=== PATIENT | female | born 1995 | race Caucasian/White ===

== ENCOUNTER 2017-02-19 08:22 | Emergency (ER) | payer MEDICAID, OTHER ==
[~2017-02-19] VITALS: Ht 160 cm; Wt 68.0 kg
[~2017-02-19 08:22] MED LIST: ZOFR4TAB3 SL
[2017-02-19 08:29] VITALS: PULSE 55; RESP 16; TEMP 98.3; O2SAT 99
[2017-02-19 08:40] VITALS: BP 102/58
[2017-02-19] MEDS ORDERED: DEXAMETHASONE SOD PHOS 4 MG/ML VIAL IM ONE (09:15)
[2017-02-19] MEDS ORDERED: SODIUM CHLORIDE 0.9% FLUSH 10 ML FLUSH IVF PRN (09:15)
[2017-02-19] MEDS ORDERED: RESP: ALBUTEROL 2.5 MG/IPRATROPIUM 0.5 MG NEB (SCH) INH ONE (09:15)
[2017-02-19] MEDS ORDERED: guaiFENesin/CODEINE SYRUP 200 MG/20 MG/10 ML CUP PO ONE (09:15)
[2017-02-19] MEDS ORDERED: KETOROLAC TROMETHAMINE 60 MG/2 ML (IM) VIAL IM ONE (09:15)
[2017-02-19] MEDS ORDERED: ALBUTEROL SULFATE 90 MCG/ACT HFA 8 GM INHALER INH ONE (09:15)
--- NOTE | 2017-02-19 09:36 | RADHPO ---
EXAM DATE/TIME: 02/19/2017 09:20 [facility] COMPARISON: CHEST PA & LAT, December 19, 2015, 9:19. INDICATIONS : Short of breath. Left lower chest pain. MEDICAL HISTORY : None. SURGICAL HISTORY : Tonsillectomy. ENCOUNTER: Initial ACUITY: 1 day PAIN SCORE: 8/10 LOCATION: chest FINDINGS: A single view of the chest demonstrates the lungs to be symmetrically aerated without evidence of mas s, infiltrate or effusion. The cardiomediastinal contours are unremarkable. Incidental note of a ce rvical rib on the left side.. CONCLUSION: The lungs are clear. Michael Martínez MD on February 19, 2017 at 9:34 Board Certified Radiologist. This report was verified electronically.
[2017-02-19] MEDS ORDERED: IBUP400T20 PO (09:44)
[2017-02-19] MEDS ORDERED: AZIT250T3 PO (09:44)
--- NOTE | 2017-02-19 09:44 | PD ---
HPI Chief Complaint: Lump, Cyst, Hernia Time Seen by Provider: 08:46 Travel History International Travel<30 days: No Contact w/Intl Traveler<30days: No Traveled to known affect area: No History of Present Illness HPI 21-year-old female arrives complaining of chest pain dyspnea total body pain cough for 2 days. The pain is primarily on the left side of the shoulder and chest. She denies fever. She also reports a lump in the region of the left neck which has been painful for at least one year. She has no past medical history. She has history of tonsillectomy. She denies taking any medication. She smokes tobacco. PFSH Past Medical History Medical History: Denies Significant Hx Hx Anticoagulant Therapy: No Diabetes: No ?: Unknown Past Surgical History Tonsillectomy: Yes Social History Alcohol Use: No Tobacco Use: Yes (1ppd) Substance Use: No Allergies-Medications (Allergen,Severity, Reaction): Coded Allergies: Penicillin (Verified Allergy, Severe, 02/19/17) Reported Meds & Prescriptions Reported Meds & Active Scripts Active Azithromycin 250 Mg Tab 250 Mg PO DIRECTED Take 2 tabs (500 mg) on day 1 then 1 tab daily x 4 days. Ibuprofen 400 Mg Tab 400 Mg PO Q8H PRN 5 Days Review of Systems Except as stated in HPI: all other systems reviewed are Neg Cardiovascular: Positive: Chest Pain or Discomfort Respiratory: Positive: Cough, Shortness of Breath Physical Exam Narrative GENERAL: [age]-year-old female pleasant mild distress SKIN: Focused skin assessment warm/dry. HEAD: Atraumatic. Normocephalic. EYES: Pupils equal and round. No scleral icterus. No injection or drainage. ENT: No nasal bleeding or discharge. Mucous membranes pink and moist. NECK: Trachea midline. No JVD. CARDIOVASCULAR: Regular rate and rhythm. No murmur appreciated. RESPIRATORY: No dyspnea. No tachypnea. Trace wheezing. GASTROINTESTINAL: Abdomen soft, non-tender, nondistended. Hepatic and splenic margins not palpable. MUSCULOSKELETAL: No obvious deformities. No clubbing. No cyanosis. No edema. NEUROLOGICAL: Awake and alert. No obvious cranial nerve deficits. Motor grossly within normal limits. Normal speech. PSYCHIATRIC: Appropriate mood and affect; insight and judgment normal. Data Data Last Documented VS Vital Signs Date Time Temp Pulse Resp B/P Pulse Ox O2 Delivery O2 Flow Rate FiO2 02/19/17 08:40 102/58 02/19/17 08:29 98.3 55 16 99 Vital signs reviewed Orders Chest, Single Ap (02/19/17 09:03) Sodium Chloride 0.9% Flush (Ns Flush) (02/19/17 09:15) Albuterol-Ipratropium Neb (Duoneb Neb) (02/19/17 09:15) Dexamethasone Inj (Decadron Inj) (02/19/17 09:15) Albuterol Hfa Inh (Proair Hfa Inh) (02/19/17 09:15) Guaifen-Cod 200-20 Mg/10ml Liq (Robituss (02/19/17 09:15) Ketorolac Inj (Toradol Inj) (02/19/17 09:15) MDM Medical Decision Making Medical Screen Exam Complete: Yes Emergency Medical Condition: Yes Medical Record Reviewed: Yes Differential Diagnosis Bronchitis, pneumonia, viral syndrome Narrative Course Patient has been observed sleeping in the ER thrice. She has received an inhaler and steroids. We'll send her home with the same. She is ready for discharge. On exam there is slight tenderness in the region of the left clavicular fossa. Last 24 hours Impressions Chest X-Ray 02/19/17902 Signed Impressions: Service Date/Time: February 09:20 - CONCLUSION: The lungs are clear. Michael Martínez MD Incidental note of a cervical rib. Diagnosis Primary Impression: Cough Additional Impressions: Neck pain Complaints of total body pain Dyspnea Qualified Code: R06.00 - Dyspnea, unspecified type Referrals: Primary Care Physician 2 days Additional Instructions: You have a choice when it comes to health care, and we are glad that you chose [facility]. Hopefully, we have met your expectations on today's visit. You are welcome to return to [facility] at any time, as we are committed to meeting the health care needs of our community. Med/Other Pt SpecificInfo: Prescription(s) given Scripts Azithromycin 250 Mg [id number] Mg PO DIRECTED #6 TAB Ref 0 Take 2 tabs (500 mg) on day 1 then 1 tab daily x 4 days. Prov:Mohamud Walter MD 02/19/17 Ibuprofen 400 Mg [id number] Mg PO Q8H PRN (PAIN SCALE 6 TO 10) 5 Days Ref 0 Prov:Mohamud Walter MD 02/19/17 Disposition: 01 DISCHARGE HOME Condition: Stable Mohamud Walter MD Feb 19, 2017 09:44
== END 2017-02-19 10:07 | disposition home or self-care (01) ==
LOC: PHED 08:22
DX: R05 Cough (principal); M54.2 Cervicalgia; M79.1 Myalgia; R06.00 Dyspnea, unspecified; R07.89 Other chest pain; M25.512 Pain in left shoulder; F17.200 Nicotine dependence, unspecified, uncomplicated
CPT/HCPCS: 71010; 94664; 96372; 99283; J1100; J1885

== ENCOUNTER 2017-02-22 11:41 | Emergency (ER) | payer MEDICAID, OTHER ==
[~2017-02-22] VITALS: Ht 172.7 cm; Wt 65.0 kg
[~2017-02-22 11:41] MED LIST changes: +AZIT250T3 PO; +IBUP400T20 PO; -ZOFR4TAB3 SL
[2017-02-22 11:44] VITALS: BP 121/72; PULSE 78; RESP 18; TEMP 98.1; O2SAT 100
[2017-02-22] MEDS ORDERED: SODIUM CHLOR 0.9% 1000 ML INJ 1,000 ML IV SCH (12:09)
--- NOTE | 2017-02-22 12:13 | PD ---
HPI Chief Complaint: GI Complaint Time Seen by Provider: 12:00 Travel History International Travel<30 days: No Contact w/Intl Traveler<30days: No Traveled to known affect area: No History of Present Illness HPI 21-year-old female complains of persistent cough, chest wall pain, nausea vomiting. Patient was seen in emergency room 3 days ago with diagnosis of cough and body pain. Patient was given prescription for Zithromax and ibuprofen. Patient has been taking medication as directed. Patient states the cough is persistent and productive. Patient lives right-sided chest wall pain and right upper back pain with coughing. Patient states that she started having intermittent nausea vomiting for the past 2 days. Patient denies any dysuria or frequency. Patient denies any vaginal discharge or bleeding. Patient denies any chance of being . PFSH Past Medical History Hx Anticoagulant Therapy: No Diabetes: No ?: Not LMP: 01/28/17 Past Surgical History Tonsillectomy: Yes Social History Alcohol Use: No Tobacco Use: Yes (1ppd) Substance Use: No Allergies-Medications (Allergen,Severity, Reaction): Coded Allergies: Penicillin (Verified Allergy, Severe, 02/19/17) Reported Meds & Prescriptions Reported Meds & Active Scripts Active Robaxin (Methocarbamol) 750 Mg Tab 750 Mg PO QID [Phenergan W Codein] 10 Ml PO Q6HR Tessalon Perles (Benzonatate) 100 Mg Cap 200 Mg PO TID PRN Azithromycin 250 Mg Tab 250 Mg PO DIRECTED Take 2 tabs (500 mg) on day 1 then 1 tab daily x 4 days. Ibuprofen 400 Mg Tab 400 Mg PO Q8H PRN 5 Days Review of Systems General / Constitutional: No: Fever Eyes: No: Visual changes HENT: No: Headaches Cardiovascular: No: Chest Pain or Discomfort Respiratory: Positive: Cough, No: Shortness of Breath Gastrointestinal: Positive: Nausea, Vomiting, No: Abdominal Pain Genitourinary: No: Dysuria Musculoskeletal: No: Pain Skin: No Rash Neurologic: No: Weakness Psychiatric: No: Depression Endocrine: No: Polydipsia Hematologic/Lymphatic: No: Easy Bruising Physical Exam Narrative GENERAL: Well-nourished, well-developed patient. SKIN: Focused skin assessment warm/dry. HEAD: Normocephalic. EYES: No scleral icterus. No injection or drainage. NECK: Supple, trachea midline. No JVD or lymphadenopathy. CARDIOVASCULAR: Regular rate and rhythm without murmurs, gallops, or rubs. RESPIRATORY: Breath sounds equal bilaterally. No accessory muscle use. GASTROINTESTINAL: Abdomen soft, non-tender, nondistended. MUSCULOSKELETAL: No cyanosis, or edema. BACK: Nontender without obvious deformity. No CVA tenderness. Neurologic exam normal. Data Data Last Documented VS Vital Signs Date Time Temp Pulse Resp B/P Pulse Ox O2 Delivery O2 Flow Rate FiO2 02/22/17 13:55 104 16 124/68 100 Room Air 02/22/17 11:44 98.1 Orders Complete Blood Count With Diff (02/22/17 12:09) Comprehensive Metabolic Panel (02/22/17 12:09) Urinalysis - C+S If Indicated (02/22/17 12:09) Iv Access Insert/Monitor (02/22/17 12:09) Ecg Monitoring (02/22/17 12:09) Oximetry (02/22/17 12:09) Ondansetron Inj (Zofran Inj) (02/22/17 12:15) Sodium Chlor 0.9% 1000 Ml Inj (Ns 1000 M (02/22/17 12:09) Chest, Single Ap (02/22/17 12:09) Ed Urine Pregnancytest Poc (02/22/17 12:09) Ketorolac Inj (Toradol Inj) (02/22/17 12:15) Influenzae A/B Antigen (02/22/17 12:56) Sodium Chlor 0.9% 1000 Ml Inj (Ns 1000 M (02/22/17 13:30) Levofloxacin (Levaquin) (02/22/17 13:30) Labs Laboratory Tests Test 02/22/17 02/22/17 12:15 12:20 White Blood Count 15.9 TH/MM3 Red Blood Count 5.31 MIL/MM3 Hemoglobin 15.7 GM/DL Hematocrit 46.2 % Mean Corpuscular Volume 87.0 FL Mean Corpuscular Hemoglobin 29.5 PG Mean Corpuscular Hemoglobin 33.9 % Concent Red Cell Distribution Width 13.8 % Platelet Count 337 TH/MM3 Mean Platelet Volume 8.6 FL Neutrophils (%) (Auto) 90.9 % Lymphocytes (%) (Auto) 4.1 % Monocytes (%) (Auto) 4.4 % Eosinophils (%) (Auto) 0.4 % Basophils (%) (Auto) 0.2 % Neutrophils # (Auto) 14.4 TH/MM3 Lymphocytes # (Auto) 0.7 TH/MM3 Monocytes # (Auto) 0.7 TH/MM3 Eosinophils # (Auto) 0.1 TH/MM3 Basophils # (Auto) 0.0 TH/MM3 CBC Comment AUTO DIFF Differential Total Cells 100 Counted Neutrophils % (Manual) 79 % Band Neutrophils % 13 % Lymphocytes % 4 % Monocytes % 3 % Basophils % 1 % Neutrophils # (Manual) 14.6 TH/MM3 Differential Comment FINAL DIFF MANUAL Platelet Estimate NORMAL Platelet Morphology Comment NORMAL Red Cell Morphology Comment NORMAL Sodium Level 138 MEQ/L Potassium Level 4.5 MEQ/L Chloride Level 106 MEQ/L Carbon Dioxide Level 23.6 MEQ/L Anion Gap 8 MEQ/L Blood Urea Nitrogen 19 MG/DL Creatinine 1.10 MG/DL Estimat Glomerular Filtration 64 ML/MIN Rate Random Glucose 118 MG/DL Calcium Level 9.5 MG/DL Total Bilirubin 0.7 MG/DL Aspartate Amino Transf 14 U/L (AST/SGOT) Alanine Aminotransferase 19 U/L (ALT/SGPT) Alkaline Phosphatase 98 U/L Total Protein 8.9 GM/DL Albumin 4.7 GM/DL Urine Collection Type CLEAN CATCH Urine Color S[place] Urine Turbidity SLIGHT Urine pH 5.5 Urine Specific [place] 1.032 Urine Protein 30 mg/dL Urine Glucose (UA) NEG mg/dL Urine Ketones 15 mg/dL Urine Occult Blood NEG Urine Nitrite NEG Urine Bilirubin NEG Urine Leukocyte Esterase NEG Urine WBC 0-2 /hpf Urine Squamous Epithelial > 8 /hpf Cells Urine Amorphous Sediment MOD Microscopic Urinalysis Comment CULT NOT INDICATED Urine Collection Time 1220 MDM Medical Decision Making Medical Screen Exam Complete: Yes Emergency Medical Condition: Yes Interpretation(s) 12:54 PM. Last Impressions Chest X-Ray 02/22/17 1209 Signed Impressions: Service Date/Time: Wednesday, February 22, 2017 12:16 - CONCLUSION: Normal examination. Madonna Araya MD 12:55 PM. CBC WBC 15.9. Hemoglobin 15.7 hematocrit 46.2. 90 neutrophil. BUN 19. Creatinine 1.10. UA is negative. BUN 19. Creatinine 1.10. Influenza AB antigen negative. Differential Diagnosis Differential diagnosis including viral syndrome, bronchitis, pneumonia, gastroenteritis, dehydration, electrolyte imbalance. Narrative Course 21-year-old female complains of coughing chest wall pain and nausea vomiting. Patient is on Zithromax day #3. Normal saline solution 1 L IV bolus. Zofran 4 mg IV. Toradol 30 mg IV. CBC and CMP reveal shows hemoconcentration and dehydration. Patient was offered admission for IV hydration and treatment. Patient refuses admission. Patient wants to go home with medication. Repeat normal saline solution 1 L IV bolus. Levaquin 750 mg by mouth given. Diagnosis Primary Impression: Bronchitis Additional Impression: Viral syndrome Patient Instructions: General Instructions Additional Instructions: Continue with Zithromax. Tylenol for fever. Take cough medication as directed. Follow-up with local physician. Return if persistent problem or worse. Med/Other Pt SpecificInfo: Prescription(s) given Scripts Methocarbamol (Robaxin)750 Mg [id number] Mg PO QID #40 TAB Ref 0 Prov:Ran Craft MD 02/22/17 [Phenergan W Codein] No Conflict Check10 Ml PO Q6HR #120 Prov:Ran Craft MD 02/22/17 Benzonatate (Tessalon Perles)100 Mg [id number] Mg PO TID PRN (COUGH) #30 CAP Prov:Ran Craft MD 02/22/17 Disposition: 01 DISCHARGE HOME Condition: Stable Ran Craft MD Feb 22, 2017 12:13
[2017-02-22] MEDS ORDERED: ONDANSETRON HCL 4 MG/2 ML VIAL IVP ONE (12:15)
[2017-02-22] MEDS ORDERED: KETOROLAC TROMETHAMINE 30 MG/ML (IVP) VIAL IV PUSH ONE (12:15)
[2017-02-22 12:26] VITALS: RESP 18; O2SAT 98
[2017-02-22 12:35] LABS: BLOOD, URINE NEG (NEG); GLUCOSE,URINE NEG (NEG); KETONE, URINE 15 mg/dL (NEG); NITRITE,URINE NEG (NEG); PH, URINE 5.5 (5.0-8.5)
[2017-02-22 12:37] LABS: AUTOMATED NEUTROPHIL # 14.4 TH/MM3 (1.8-7.7); BASOPHIL % 0.2 % (0.0-2.0); EOSINOPHIL # 0.1 TH/MM3 (0-0.4); EOSINOPHIL % 0.4 % (0.0-4.0); HEMATOCRIT 46.2 % (35.0-46.0); LYMPH % 4.1 % (9.0-44.0); LYMPHOCYTE # 0.7 TH/MM3 (1.0-4.8); MEAN CORPUSCULAR HEMOGLOBIN 29.5 PG (27.0-34.0); MEAN CORPUSCULAR HGB CONC 33.9 % (32.0-36.0); MONO % 4.4 % (0.0-8.0); NEUT % 90.9 % (16.0-70.0); PLATELET COUNT 337 TH/MM3 (150-450); RED BLOOD COUNT 5.31 MIL/MM3 (4.00-5.30); RED CELL DISTRIBUTION WIDTH 13.8 % (11.6-17.2); WHITE BLOOD COUNT 15.9 TH/MM3 (4.0-11.0)
[2017-02-22 12:38] LABS: HEMO FLAGS AUTO DIFF
--- NOTE | 2017-02-22 12:40 | RADHPO ---
EXAM DATE/TIME: 02/22/2017 12:16 [facility] COMPARISON: CHEST SINGLE AP, February 19, 2017, 9:20. INDICATIONS : Chest pain, cough, short of breath MEDICAL HISTORY : None. SURGICAL HISTORY : None. ENCOUNTER: Initial ACUITY: 4 - 6 days PAIN SCORE: 10/10 LOCATION: Bilateral chest FINDINGS: A single view of the chest demonstrates the lungs to be symmetrically aerated without evidence of mas s, infiltrate or effusion. The cardiomediastinal contours are unremarkable. Osseous structures are intact. CONCLUSION: Normal examination. Madonna Araya MD on February 22, 2017 at 12:38 Board Certified Radiologist. This report was verified electronically.
[2017-02-22 12:42] LABS: METHOD OF COLLECTION CLEAN CATCH; URINE COLOR AMBER (YELLW/STRAW)
[2017-02-22 12:43] LABS: CULTURE IF INDICATED CULT NOT INDICATED; WBC, URINE 0-2 /hpf (0-5)
[2017-02-22 12:44] LABS: COMMENT (UR) CULT NOT INDICATED; COMMENT2 (UR) MHCOUS; SQUAMOUS EPITHELIAL CELL URINE > 8 /hpf (0-5)
[2017-02-22 12:46] LABS: CHLORIDE 106 MEQ/L (98-107); POTASSIUM 4.5 MEQ/L (3.5-5.1); SODIUM (NA) 138 MEQ/L (136-145)
[2017-02-22 12:49] LABS: ANION GAP 8 MEQ/L (5-15); BICARBONATE 23.6 MEQ/L (21.0-32.0)
[2017-02-22 12:50] LABS: BLOOD UREA NITROGEN 19 MG/DL (7-18)
[2017-02-22 12:53] LABS: ALT (GPT) 19 U/L (9-42); AST (GOT) 14 U/L (16-38); GLOMERULAR FILTRATION RATE 64 ML/MIN (>89)
[2017-02-22 12:54] LABS: TOTAL BILIRUBIN ADULT 0.7 MG/DL (0.2-1.0)
[2017-02-22 12:55] LABS: ALKALINE PHOSPHATASE 98 U/L (45-117)
[2017-02-22 12:56] LABS: BANDS 13 % (0-6); BASOPHILS 1 % (0-2); NEUTROPHIL # MANUAL DIFF 14.6 TH/MM3 (1.8-7.7); POLYS (SEG NEUTROPHILS) 79 % (16-70); WBC DIFF SAMPLE 100
[2017-02-22 12:57] LABS: PLATELET ESTIMATE SMEAR NORMAL (NORMAL); PLATELET MORPHOLOGY NORMAL (NORMAL); SCAN/DIFF FINAL DIFF MANUAL
[2017-02-22] MEDS ORDERED: SODIUM CHLOR 0.9% 1000 ML INJ 1,000 ML IV ONE (13:30)
[2017-02-22] MEDS ORDERED: LEVOFLOXACIN 750 MG TAB PO ONE (13:30)
[2017-02-22] MEDS ORDERED: BENZ100 PO (13:35)
[2017-02-22] MEDS ORDERED: ROBA750T PO (13:35)
[2017-02-22] MEDS ORDERED: PHENERGAN W CODEIN PO (13:35)
[2017-02-22 13:55] VITALS: BP 124/68; PULSE 104; RESP 16; O2SAT 100
== END 2017-02-22 14:41 | disposition home or self-care (01) ==
LOC: PHED 11:41
DX: J40 Bronchitis, not specified as acute or chronic (principal); B34.9 Viral infection, unspecified; F17.200 Nicotine dependence, unspecified, uncomplicated
CPT/HCPCS: 71010; 80053; 81001; 84703; 85007; 85027; 87804; 96361; 96374; 96375; 99283; J1885; J2405; J7030

== ENCOUNTER 2017-02-28 13:14 | Emergency (ER) | payer MEDICAID, OTHER ==
[~2017-02-28] VITALS: Ht 160 cm; Wt 67.1 kg
[~2017-02-28 13:14] MED LIST changes: +BENZ100 PO; +PHENERGAN W CODEIN PO; +ROBA750T PO
[2017-02-28 13:21] VITALS: BP 107/99; PULSE 98; RESP 15; TEMP 98.5; O2SAT 99
--- NOTE | 2017-02-28 13:38 | PD ---
HPI Chief Complaint: Cold / Flu Symptoms Time Seen by Provider: 13:25 Travel History International Travel<30 days: No Contact w/Intl Traveler<30days: No Traveled to known affect area: No History of Present Illness HPI The patient is a 21-year-old female who presents to the emergency department for pleuritic chest pain. The patient states this is her third evaluation in the emergency department for anterior left-sided pleuritic chest pain. The pain is worse with inspiration, sharp, stabbing, radiates to left shoulder. The patient also complains of a cough, occasionally productive, producing yellow sputum. The patient states she was diagnosed with bronchitis and had to chest x-rays which were negative. The patient was placed on Zithromax and Phenergan with codeine, however, she continues to have symptoms which are progressing. She denies any fever, chills, or sweats. The patient recently traveled to the local area 30 days ago does not have a local primary physician. She denies any history of pulmonary embolism, DVT, recent hospitalizations, or recent surgery. She does complain of mild shortness of breath that is worse with inspiration. She does have a history of tobacco use, last cigarette was prior to arrival. PFSH Past Medical History Hx Anticoagulant Therapy: No Diabetes: No ?: Unknown LMP: 01/28 Past Surgical History Tonsillectomy: Yes Social History Alcohol Use: No Tobacco Use: Yes (1ppd) Substance Use: No Allergies-Medications (Allergen,Severity, Reaction): Coded Allergies: Penicillin (Verified Allergy, Severe, 02/28/17) Reported Meds & Prescriptions Reported Meds & Active Scripts Active Robaxin (Methocarbamol) 750 Mg Tab 750 Mg PO QID [Phenergan W Codein] 10 Ml PO Q6HR Tessalon Perles (Benzonatate) 100 Mg Cap 200 Mg PO TID PRN Azithromycin 250 Mg Tab 250 Mg PO DIRECTED Take 2 tabs (500 mg) on day 1 then 1 tab daily x 4 days. Ibuprofen 400 Mg Tab 400 Mg PO Q8H PRN 5 Days Review of Systems Except as stated in HPI: all other systems reviewed are Neg General / Constitutional: No: Fever Cardiovascular: Positive: Chest Pain or Discomfort Respiratory: Positive: Cough, Shortness of Breath, Pleuritic Pain Gastrointestinal: No: Nausea, Vomiting, Abdominal Pain Musculoskeletal: No: Edema Physical Exam Narrative GENERAL: Awake, alert, nontoxic-appearing 21-year-old female who appears her stated age and is in no acute respiratory distress. The patient appears comfortable when I walk in the room and is on her phone. SKIN: Focused skin assessment warm/dry. HEAD: Atraumatic. Normocephalic. EYES: Pupils equal and round. No scleral icterus. No injection or drainage. ENT: No nasal bleeding or discharge. Mucous membranes pink and moist. NECK: Trachea midline. No JVD. CARDIOVASCULAR: Regular rate and rhythm. No murmur appreciated. Heart rate in the 90s. Left chest wall is tender to palpation. RESPIRATORY: No accessory muscle use. Clear to auscultation. Breath sounds equal bilaterally. GASTROINTESTINAL: Abdomen soft, non-tender, nondistended. MUSCULOSKELETAL: No obvious deformities. No clubbing. No cyanosis. No edema. NEUROLOGICAL: Awake and alert. No obvious cranial nerve deficits. Motor grossly within normal limits. Normal speech. PSYCHIATRIC: Appropriate mood and affect; insight and judgment normal. Data Data Last Documented VS Vital Signs Date Time Temp Pulse Resp B/P Pulse Ox O2 Delivery O2 Flow Rate FiO2 02/28/17 13:21 98.5 98 15 107/99 99 Orders Complete Blood Count With Diff (02/28/17 13:33) Basic Metabolic Panel (Bmp) (02/28/17 13:33) D-Dimer (02/28/17 13:33) Iv Access Insert/Monitor (02/28/17 13:33) Electrocardiogram (02/28/17 13:33) Ecg Monitoring (02/28/17 13:33) Oximetry (02/28/17 13:33) Oxygen Administration (02/28/17 13:33) Sodium Chloride 0.9% Flush (Ns Flush) (02/28/17 13:45) Sodium Chlor 0.9% 1000 Ml Inj (Ns 1000 M (02/28/17 13:45) Ketorolac Inj (Toradol Inj) (02/28/17 13:45) Labs Laboratory Tests Test 02/28/17 13:38 White Blood Count 9.7 TH/MM3 Red Blood Count 4.53 MIL/MM3 Hemoglobin 13.4 GM/DL Hematocrit 39.3 % Mean Corpuscular Volume 86.8 FL Mean Corpuscular Hemoglobin 29.6 PG Mean Corpuscular Hemoglobin 34.2 % Concent Red Cell Distribution Width 12.9 % Platelet Count 306 TH/MM3 Mean Platelet Volume 7.4 FL Neutrophils (%) (Auto) 58.7 % Lymphocytes (%) (Auto) 35.3 % Monocytes (%) (Auto) 4.3 % Eosinophils (%) (Auto) 1.0 % Basophils (%) (Auto) 0.7 % Neutrophils # (Auto) 5.7 TH/MM3 Lymphocytes # (Auto) 3.4 TH/MM3 Monocytes # (Auto) 0.4 TH/MM3 Eosinophils # (Auto) 0.1 TH/MM3 Basophils # (Auto) 0.1 TH/MM3 CBC Comment DIFF FINAL Differential Comment D-Dimer Quantitative (PE/DVT) 0.36 MG/L FEU Sodium Level 142 MEQ/L Potassium Level 3.9 MEQ/L Chloride Level 108 MEQ/L Carbon Dioxide Level 23.6 MEQ/L Anion Gap 10 MEQ/L Blood Urea Nitrogen 8 MG/DL Creatinine 0.75 MG/DL Estimat Glomerular Filtration 100 ML/MIN Rate Random Glucose 110 MG/DL Calcium Level 8.5 MG/DL MDM Medical Decision Making Medical Screen Exam Complete: Yes Emergency Medical Condition: Yes Medical Record Reviewed: Yes Interpretation(s) Laboratory Tests Test 02/28/17 13:38 White Blood Count 9.7 TH/MM3 Red Blood Count 4.53 MIL/MM3 Hemoglobin 13.4 GM/DL Hematocrit 39.3 % Mean Corpuscular Volume 86.8 FL Mean Corpuscular Hemoglobin 29.6 PG Mean Corpuscular Hemoglobin 34.2 % Concent Red Cell Distribution Width 12.9 % Platelet Count 306 TH/MM3 Mean Platelet Volume 7.4 FL Neutrophils (%) (Auto) 58.7 % Lymphocytes (%) (Auto) 35.3 % Monocytes (%) (Auto) 4.3 % Eosinophils (%) (Auto) 1.0 % Basophils (%) (Auto) 0.7 % Neutrophils # (Auto) 5.7 TH/MM3 Lymphocytes # (Auto) 3.4 TH/MM3 Monocytes # (Auto) 0.4 TH/MM3 Eosinophils # (Auto) 0.1 TH/MM3 Basophils # (Auto) 0.1 TH/MM3 CBC Comment DIFF FINAL Differential Comment D-Dimer Quantitative (PE/DVT) 0.36 MG/L FEU Sodium Level 142 MEQ/L Potassium Level 3.9 MEQ/L Chloride Level 108 MEQ/L Carbon Dioxide Level 23.6 MEQ/L Anion Gap 10 MEQ/L Blood Urea Nitrogen 8 MG/DL Creatinine 0.75 MG/DL Estimat Glomerular Filtration 100 ML/MIN Rate Random Glucose 110 MG/DL Calcium Level 8.5 MG/DL EKG reveals normal sinus rhythm with a rate in 95. Inverted T waves in lead 3. Differential Diagnosis Differential diagnosis includes bronchitis, pneumonia, pleurisy, pericarditis, pulmonary embolism, pleural effusion. Narrative Course IV was established, labs are drawn and sent, and the patient was placed on cardiac telemetry monitoring and continuous pulse oximetry monitoring. EKG was ordered and interpreted to evaluate for pericarditis. D-dimer was sent to lab. I reviewed the patient's EMR, her creatinine on her previous visit was 1.1, white count was 15.9, UA test was negative. The patient was administered Toradol 30 mg intravenously and 1 L of IV fluids. EKG reveals no evidence of pericarditis. D-dimer is 0.36, therefore, no indication for CT pulmonary angiogram. The patient has bronchitis with secondary pleurisy, Medrol Dosepak will be added to the patient's Zithromax and cough medicine. The patient is advised to follow-up with a primary physician. Diagnosis Primary Impression: Bronchitis Additional Impression: Pleurisy Patient Instructions: General Instructions Additional Instructions: Medication as directed. Continue Zithromax and cough medicine as needed. Follow-up with a primary physician. Stop smoking. Med/Other Pt SpecificInfo: Prescription(s) given Scripts Methylprednisolone Dosepak (Medrol Dosepak)4 Mg Dspk4 Mg PO DIRECTED #1 DSPK Ref 0 Per Pharmacist direction Prov:Santos Nobles MD 02/28/17 Disposition: 01 DISCHARGE HOME Condition: Stable Santos Nobles MD Feb 28, 2017 13:38
[2017-02-28 13:43] LABS: AUTOMATED NEUTROPHIL # 5.7 TH/MM3 (1.8-7.7); BASOPHIL # 0.1 TH/MM3 (0-0.2); BASOPHIL % 0.7 % (0.0-2.0); EOSINOPHIL # 0.1 TH/MM3 (0-0.4); HEMATOCRIT 39.3 % (35.0-46.0); HEMO FLAGS DIFF FINAL; LYMPH % 35.3 % (9.0-44.0); LYMPHOCYTE # 3.4 TH/MM3 (1.0-4.8); MEAN CELL VOLUME 86.8 FL (80.0-100.0); MEAN CORPUSCULAR HEMOGLOBIN 29.6 PG (27.0-34.0); MEAN CORPUSCULAR HGB CONC 34.2 % (32.0-36.0); MONO % 4.3 % (0.0-8.0); NEUT % 58.7 % (16.0-70.0); PLATELET COUNT 306 TH/MM3 (150-450); RED BLOOD COUNT 4.53 MIL/MM3 (4.00-5.30); RED CELL DISTRIBUTION WIDTH 12.9 % (11.6-17.2); WHITE BLOOD COUNT 9.7 TH/MM3 (4.0-11.0)
[2017-02-28] MEDS ORDERED: SODIUM CHLOR 0.9% 1000 ML INJ 1,000 ML IV ONE (13:45)
[2017-02-28] MEDS ORDERED: KETOROLAC TROMETHAMINE 30 MG/ML (IVP) VIAL IV PUSH ONE (13:45)
[2017-02-28] MEDS ORDERED: SODIUM CHLORIDE 0.9% FLUSH 10 ML FLUSH IVF PRN (13:45)
[2017-02-28 13:52] LABS: POTASSIUM 3.9 MEQ/L (3.5-5.1)
[2017-02-28 13:55] LABS: BICARBONATE 23.6 MEQ/L (21.0-32.0)
[2017-02-28] MEDS ORDERED: MEDR4PAK PO (14:13)
[2017-02-28] MEDS ORDERED: VENTAER INH (14:24)
[2017-02-28 14:26] VITALS: BP 125/68
[2017-02-28 14:34] VITALS: O2SAT 98
--- NOTE | 2017-03-01 13:49 | EKG ---
Date Performed: 02/28/2017 Time Performed: 13:40:28 PTAGE: 21 years EKG: Sinus rhythm Compared to previous tracing, heart rate has increased from 45 bpm to 95 bpm, otherwise, no signific ant change. Normal ECG PREVIOUS TRACING : 12/19/2015 08.58 DOCTOR: Warren Hastings Interpretating Date/Time 03/01/2017 13:47:52
== END 2017-02-28 14:46 | disposition home or self-care (01) ==
LOC: PHED 13:14
DX: J40 Bronchitis, not specified as acute or chronic (principal); R09.1 Pleurisy; F17.200 Nicotine dependence, unspecified, uncomplicated
CPT/HCPCS: 80048; 85025; 85379; 93005; 96374; 99284; J1885; J7030

== ENCOUNTER 2017-03-02 12:24 | Emergency (ER) | payer MEDICAID, OTHER ==
[~2017-03-02] VITALS: Ht 160 cm; Wt 67.6 kg
[~2017-03-02 12:24] MED LIST changes: +MEDR4PAK PO; +VENTAER INH
[2017-03-02 12:36] VITALS: BP 131/90; PULSE 100; RESP 16; TEMP 97.8; O2SAT 99
--- NOTE | 2017-03-02 12:50 | PD ---
HPI Chief Complaint: Swim Coach Problem/Complaint Time Seen by Provider: 12:47 Travel History International Travel<30 days: No Contact w/Intl Traveler<30days: No Traveled to known affect area: No History of Present Illness HPI 21-year-old female with no significant past medical issues, presents to the ER today for 3 days history of pelvic discomfort which she rates at an 8 out of 10 , brownish vaginal discharge which started yesterday, and states that she has been sexually active with a partner she has had about 2 months and recently had a unprotected sex with him. She states that she last had her menses on January 28 , admits that this could be her menses. She denies any fevers, vomiting, urinary symptoms, or any other symptoms. Modifying Factors: None Associated Signs & Symptoms: Brownish vaginal discharge, pelvic cramps Risk Factors: Unprotected sex recently PFSH Past Medical History Hx Anticoagulant Therapy: No Diabetes: No ?: Unknown LMP: 01/28/17 Past Surgical History Tonsillectomy: Yes Social History Alcohol Use: No Tobacco Use: Yes (1ppd) Substance Use: No Allergies-Medications (Allergen,Severity, Reaction): Coded Allergies: Penicillin (Verified Allergy, Severe, 03/02/17) Reported Meds & Prescriptions Reported Meds & Active Scripts Active No Active Prescriptions or Reported Medications Review of Systems Except as stated in HPI: all other systems reviewed are Neg Physical Exam Narrative GENERAL: Young white female who is well-developed, awake, alert, oriented, not in acute distress. SKIN: Focused skin assessment warm/dry. HEAD: Atraumatic. Normocephalic. EYES: Pupils equal and round. No scleral icterus. No injection or drainage. ENT: No nasal bleeding or discharge. Mucous membranes pink and moist. NECK: Trachea midline. No JVD. CARDIOVASCULAR: Regular rate and rhythm. No murmur appreciated. RESPIRATORY: No accessory muscle use. Clear to auscultation. Breath sounds equal bilaterally. GASTROINTESTINAL: Abdomen soft, mild suprapubic tenderness without guarding or rebound, nondistended. Hepatic and splenic margins not palpable. GENITOURINARY: Normal external genitalia without lesions or erythema. Vaginal vault with dark red blood and no significant drainage. Cervical os was closed without drainage. No cervical motion tenderness. Uterus nontender and nonenlarged. Bilateral adnexa nontender without masses. MUSCULOSKELETAL: No obvious deformities. No clubbing. No cyanosis. No edema. NEUROLOGICAL: Awake and alert. No obvious cranial nerve deficits. Motor grossly within normal limits. Normal speech. PSYCHIATRIC: Appropriate mood and affect; insight and judgment normal. Data Data Last Documented VS Vital Signs Date Time Temp Pulse Resp B/P Pulse Ox O2 Delivery O2 Flow Rate FiO2 03/02/17 12:36 97.8 100 16 131/90 99 Orders Gc And Chlamydia Pcr (03/02/17 12:44) Wet Prep Profile (03/02/17 12:44) Urinalysis - C+S If Indicated (03/02/17 12:44) Ed Urine Pregnancytest Poc (03/02/17 12:44) Azithromycin Powd Pack (Zithromax Powd P (03/02/17 13:45) Ceftriaxone Inj (Rocephin Inj) (03/02/17 13:45) Lidocaine 1% Inj (50 Ml) (Xylocaine 1% I (03/02/17 13:45) Metronidazole (Flagyl) (03/02/17 13:45) Labs Laboratory Tests Test 03/02/17 03/02/17 12:52 13:35 Urine Color STRAW Urine Turbidity CLEAR Urine pH 7.5 Urine Specific [place] 1.014 Urine Protein NEG mg/dL Urine Glucose (UA) NEG mg/dL Urine Ketones NEG mg/dL Urine Occult Blood LARGE Urine Nitrite NEG Urine Bilirubin NEG Urine Leukocyte Esterase NEG Urine RBC 0-3 /hpf Urine Squamous Epithelial 0-5 /hpf Cells Microscopic Urinalysis Comment CULT NOT INDICATED Clue Cells (Wet Prep) NONE SEEN Vaginal Trichomonas (Wet Prep) NONE SEEN Vaginal Yeast (Wet Prep) NONE SEEN MDM Medical Decision Making Medical Screen Exam Complete: Yes Emergency Medical Condition: Yes Medical Record Reviewed: Yes Interpretation(s) Laboratory Tests Test 03/02/17 12:52 Urine Occult Blood LARGE (NEG) Differential Diagnosis Pelvic cramps, brownish dischargedysmenorrhea versus UTI versus threatened AB versus ectopic versus vaginitis Narrative Course Pelvic exam shows blood but is otherwise unremarkable. She is not . At this point, I suspect that this is her usual menses. GC is pending. Considering the unprotected sex, patient is agreeable to getting empiric antibiotics for possible vaginitis or cervicitis. My plan would be to release the patient at this point would follow-up to primary care physician. Abdomen is benign and I do not suspect an acute intra-abdominal process. Return for any worsening in pain, bleeding, or new symptoms as needed. The plan has been discussed with the patient and she states understanding. Diagnosis Primary Impression: Dysmenorrhea Scripts No Active Prescriptions or Reported Meds Disposition: 01 DISCHARGE HOME Condition: Stable Yaritza Swain MD Mar 02, 2017 12:50
[2017-03-02 13:16] LABS: BLOOD, URINE LARGE (NEG); GLUCOSE,URINE NEG (NEG); KETONE, URINE NEG (NEG); NITRITE,URINE NEG (NEG); PH, URINE 7.5 (5.0-8.5)
[2017-03-02 13:25] LABS: URINE COLOR STRAW (YELLW/STRAW)
[2017-03-02 13:26] LABS: COMMENT (UR) CULT NOT INDICATED; CULTURE IF INDICATED CULT NOT INDICATED; RBC, URINE 0-3 /hpf (0-3); SQUAMOUS EPITHELIAL CELL URINE 0-5 /hpf (0-5)
[2017-03-02] MEDS ORDERED: AZITHROMYCIN PWD FOR SUSP 1 GM PACKET PO ONE (13:45)
[2017-03-02] MEDS ORDERED: metroNIDAZOLE 500 MG TAB PO ONE (13:45)
[2017-03-02] MEDS ORDERED: LIDOCAINE HCL 1% 50 ML VIAL IM ONE (13:45)
[2017-03-02] MEDS ORDERED: cefTRIAXone 250 MG VIAL IM ONE (13:45)
[2017-03-02 14:24] VITALS: BP 127/89
[2017-03-02 18:10] LABS: CHLAMYDIA PCR NOT DETECTED (NOT DETECT); NEISSERIA PCR NOT DETECTED (NOT DETECT)
== END 2017-03-02 14:26 | disposition home or self-care (01) ==
LOC: PHED 12:24
DX: N94.6 Dysmenorrhea, unspecified (principal)
CPT/HCPCS: 81001; 84703; 87210; 87491; 87591; 96372; 99284; J0696

== ENCOUNTER 2017-04-11 21:16 | Emergency (ER) | payer MEDICAID, OTHER ==
[~2017-04-11] VITALS: Ht 160 cm; Wt 66.0 kg
[2017-04-11] MEDS ORDERED: SODIUM CHLORIDE 0.9% FLUSH 10 ML FLUSH IVF PRN (21:30)
[2017-04-11 21:35] VITALS: BP 123/79; PULSE 100; RESP 18; TEMP 98.4; O2SAT 98
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
[2017-04-11 22:42] LABS: AUTOMATED NEUTROPHIL # 7.1 TH/MM3 (1.8-7.7); BASOPHIL # 0.1 TH/MM3 (0-0.2); BASOPHIL % 0.7 % (0.0-2.0); EOSINOPHIL % 0.4 % (0.0-4.0); HEMO FLAGS DIFF FINAL; LYMPH % 28.1 % (9.0-44.0); MEAN CELL VOLUME 88.1 FL (80.0-100.0); MEAN CORPUSCULAR HEMOGLOBIN 29.3 PG (27.0-34.0); MEAN CORPUSCULAR HGB CONC 33.2 % (32.0-36.0); MONO % 5.5 % (0.0-8.0); NEUT % 65.3 % (16.0-70.0); PLATELET COUNT 298 TH/MM3 (150-450); RED BLOOD COUNT 4.77 MIL/MM3 (4.00-5.30); WHITE BLOOD COUNT 10.8 TH/MM3 (4.0-11.0)
[2017-04-11 22:49] LABS: CHLORIDE 109 MEQ/L (98-107); POTASSIUM 4.1 MEQ/L (3.5-5.1); SODIUM (NA) 143 MEQ/L (136-145)
[2017-04-11 22:53] LABS: ANION GAP 6 MEQ/L (5-15); BICARBONATE 27.6 MEQ/L (21.0-32.0); BLOOD UREA NITROGEN 12 MG/DL (7-18)
[2017-04-11 22:56] LABS: ALT (GPT) 17 U/L (9-42); AST (GOT) 14 U/L (16-38); GLOMERULAR FILTRATION RATE 79 ML/MIN (>89)
[2017-04-11 22:57] LABS: TOTAL BILIRUBIN ADULT 0.4 MG/DL (0.2-1.0)
[2017-04-11 22:59] LABS: ALKALINE PHOSPHATASE 83 U/L (45-117)
[2017-04-11 23:01] LABS: BETA HCG QUANT LESS THAN 1 MIU/ML (0-5)
[2017-04-11 23:07] LABS: BLOOD, URINE NEG (NEG); GLUCOSE,URINE NEG (NEG); KETONE, URINE 40 mg/dL (NEG); NITRITE,URINE NEG (NEG)
[2017-04-11 23:19] LABS: URINE COLOR YELLOW (YELLW/STRAW)
[2017-04-11 23:20] LABS: COMMENT (UR) CULT NOT INDICATED; CULTURE IF INDICATED CULT NOT INDICATED; RBC, URINE 0-3 /hpf (0-3); SQUAMOUS EPITHELIAL CELL URINE > 8 /hpf (0-5); WBC, URINE 0-2 /hpf (0-5)
[2017-04-11 23:24] LABS: AMPHETAMINE, URINE NEG (NEG); BARBITURATES, URINE NEG (NEG); COCAINE, URINE POS (NEG)
[2017-04-11] MEDS ORDERED: NICOTINE 21 MG/24 HR PATCH T-DERMAL ONE (23:45)
[2017-04-11 23:52] LABS: ACETAMINOPHEN LESS THAN 2.0 MCG/ML (10.0-30.0)
[2017-04-12 01:25] VITALS: BP 122/70; PULSE 78; RESP 18; O2SAT 99
[2017-04-12 06:16] VITALS: BP 109/76; PULSE 74; RESP 18; O2SAT 98
[2017-04-12] MEDS ORDERED: hydrOXYzine PAMOATE 25 MG CAP PO ONE (13:00)
[2017-04-12] MEDS ORDERED: NICOTINE 14 MG/24 HR PATCH T-DERMAL ONE (13:00)
[2017-04-12 13:40] VITALS: BP 114/73; PULSE 95; RESP 18
--- NOTE | 2017-04-12 14:29 | EKG ---
Date Performed: 04/11/2017 Time Performed: 23:40:14 PTAGE: 21 years EKG: Sinus bradycardia with sinus arrhythmia. Poor R wave progression - probable normal variant Borderline ECG PREVIOUS TRACING : 02/28/2017 13.40 Compared to previous tracing, sinus arrhythmia is new, othe rwise no significant change. DOCTOR: Warren Hastings Interpretating Date/Time 04/12/2017 14:28:38
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
[2017-04-12] MEDS ORDERED: REMOVE OLD NICODERM (NICOTINE) PATCH T-DERMAL SCH (21:00)
== END 2017-04-12 16:36 | disposition home or self-care (01) ==
LOC: PHED 21:16 → NEPJ 04-12 16:36
DX: F32.9 Major depressive disorder, single episode, unspecified (principal); F15.14 Other stimulant abuse with stimulant-induced mood disorder; R94.31 Abnormal electrocardiogram [ECG] [EKG]; F19.10 Other psychoactive substance abuse, uncomplicated; F14.10 Cocaine abuse, uncomplicated; F12.10 Cannabis abuse, uncomplicated; F17.210 Nicotine dependence, cigarettes, uncomplicated
CPT/HCPCS: 80053; 80307; 81001; 84702; 85025; 93005; 99284; Q0177